=== PATIENT | female | born 1930 | race African-American/Black ===

== ENCOUNTER 2017-03-02 08:38 | Inpatient (IN) | payer MEDICARE, OTHER ==
--- NOTE | ~2017-03-02 | CT71 ---
[facility] A Service of [facility] RADIOLOGY TEXT RESULTS PATIENT: CARMINA CASON LOCATION: [facility] 563-01 : [birth year] UNIT #: [id number] AGE: [address]: Valentino Langston MD SEX: F ORDER DR: [id number] [facility] [address] [facility]. [place], [place] [address] [id number] MR#: [id number] Acc #: [id number] NAME: CARMINA CASON : 1930 SEX: F STUDY DATE/TIME: 03/02/2017 10:18 UNIT: [facility] ROOM: STUDY DESCRIPTION: CT Head Wo Contrast Attending Physician: Guru Soto M.D. Ordering Physician: Guru Soto M.D. Primary Care Physician: Sherman Tavarez M.D. MEDICAL IMAGING REPORT This report is preliminary unless electronic signature is present EXAM Noncontrast head CT. HISTORY 86-year-old female; altered mental status, unable to arouse patient this morning. History of hypertension, dementia. TECHNIQUE Axial noncontrast imaging of the brain demonstrates generalized atrophy. No mass, mass effect, or midline shift. No hemorrhage or abnormal extraaxial fluid collections. Intracranial vascular calcifications noted. The bony calvaria, skull base, mastoids, and sinuses appear normal. IMPRESSION 1. No acute intracranial abnormality identified. 2. Generalized cerebral and cerebellar atrophy consistent with the patient's advanced age and history of dementia. Dictated by... Lizbeth Melton M.D. THIS IS AN ELECTRONICALLY VERIFIED REPORT Lizbeth Melton M.D. at 03/03/2017 8:37 AM Teri TD: 03/02/2017 13:01 JOB #: [id number] MEDICAL IMAGING REPORT Page 1 of 1 COPY
--- NOTE | ~2017-03-02 | EKG ---
PATIENT: CARMINA CASON UNIT #: [id number] Ventricular Rate: 64 BPM Atrial Rate: 64 BPM P-R Interval: 180 ms QRS Duration: 76 ms Q-T Interval: 434 ms QTC Calculation(Bezet): 447 ms P [place]: 44 degrees Calculated R [place]: 126 degrees Calculated T [place]: 8 degrees Diagnosis Line: Sinus rhythm with Premature atrial complexes Diagnosis Line: Low voltage QRS Diagnosis Line: Lateral infarct , age undetermined Diagnosis Line: Abnormal ECG Diagnosis Line: No previous ECGs available Diagnosis Line: [facility] LEADS ON [facility] Diagnosis Line: Confirmed by AYSHA LEONARD MD ([id number]) on 03/03/2017 Diagnosis Line: 5:59:57 PM INTERPRETING MD: HORACIO POTTER
--- NOTE | ~2017-03-02 | CR72 ---
[facility] A Service of [facility] & [facility] RADIOLOGY TEXT RESULTS PATIENT: CARMINA CASON LOCATION: [facility] 563-01 : [birth year] UNIT #: [id number] AGE: [address]: Valentino Langston MD SEX: F ORDER DR: [id number] [facility] [address] [facility] [place] [facility]. [place], [place] [address] [id number] MR#: [id number] Acc #: [id number] NAME: CARMINA CASON : 1930 SEX: F STUDY DATE/TIME: 03/02/2017 9:27 UNIT: [facility] ROOM: STUDY DESCRIPTION: CR Chest Single View Portable Attending Physician: Guru Soto M.D. Ordering Physician: Guru Soto M.D. MEDICAL IMAGING REPORT This report is preliminary unless electronic signature is present EXAM Portable chest one view, 03/02/17 COMPARISON: None CLINICAL HISTORY Short of air today. FINDINGS Low lung volumes, and rotated exam. No definite acute abnormality. Osteopenia, left axillary surgical clips and chronic changes in the right shoulder, no definite acute abnormality. Dictated by... Bharat Owens M.D. THIS IS AN ELECTRONICALLY VERIFIED REPORT Bharat Owens M.D. at 03/03/2017 1:48 PM TEV/douglas TD: 03/02/2017 11:25 JOB #: [id number] MEDICAL IMAGING REPORT Page 1 of 1 COPY
--- NOTE | ~2017-03-02 | CO ---
Unit #: [id number] #: [id number] Patient: CARMINA MARCIAL [id number] [facility] [address] [facility]. [place], [place] [address] [id number] MR#: [id number] NAME: CARMINA MARCIAL ROOM: 563 Age: 86 Sex: F Admission Date: 03/05/2017 : 1930 Attending Physician: Valentino Langston M.D. Primary Care Physician: Sherman Tavarez M.D. Consultation Date: 03/07/2017 CONSULTATION REPORT REASON FOR CONSULTATION Followup. HISTORY OF PRESENT ILLNESS Ms. Marcial is an 86-year-old female, seen in room 563, bed 1, on 03/07/2017 at [facility]. The patient diagnosed with dementia, has confusion, but much better and decrease in agitation. The patient is making progress and will be going back to nursing facility. The patient was started on Risperdal and the patient seems to be tolerating medication fairly well. Also, continuing on Remeron, Depakote, and BuSpar. The patient denied any complaints. REVIEW OF SYSTEMS Complete review of systems is unremarkable. VITAL SIGNS Temperature 97.8, heart rate 82, respiratory rate 16, blood pressure 151/84, and oxygen saturation 98%. MENTAL STATUS EXAMINATION General appearance; the patient dressed casually, thin built, lying comfortably in bed. No agitation. The patient's attention span and concentration, poor. Speech, poor articulation. Oriented in self. Mood and affect, labile. Thought process, circumstantial. Thought content, guarded and paranoid. Recent and remote memory, poor. Language, fair to poor. Fund of knowledge, impaired. Insight and judgment, fair to poor. 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 ASSESSMENT AND PLAN Recommending at this time to continue with current combination of medication at this time and the patient can be discharged back to [facility]. At this time, the patient has shown improvement. The patient to continue with all her medications including Risperdal, Remeron, Depakote, and BuSpar. Please feel free to call if any questions, telephone #[phone]. Dictated by... Binh Clancy M.D. [facility]/julianne Unit #: [id number] #: [id number] Patient: CARMINA MARCIAL TD: 03/08/2017 13:25 JOB #: [id number] CONSULTATION REPORT Page 1 of 1 X Binh Clancy MD CONSULTATION REPORT
--- NOTE | ~2017-03-02 | HP ---
Unit #: [id number] #: [id number] Patient: CARMINA MARCIAL [id number] [facility] [address] [place], [place] [address] [id number] I MR#: [id number] NAME: CARMINA MARCIAL ROOM: [facility] Age: 86 Sex: F Admission Date: 03/02/2017 : 1930 Attending Physician: Valentino Langston M.D. Primary Care Physician: Sherman Tavarez M.D. HISTORY AND PHYSICAL ADMISSION DIAGNOSES 1. Altered mental status. 2. Urinary tract infection. HISTORY OF PRESENT ILLNESS Ms. Marcial is an 86-year-old female, patient of Dr. Tavarez at the long-term, who was transferred to the ER at [facility] for evaluation of altered mental status. Initial evaluation in the ER was significant for a UTI. Patient was started on IV antibiotics and is currently being admitted. She is alert and awake, however, severely confused and disoriented to time, place, and person. There is no family member present at the bedside. Therefore, my history is limited, and I am not able to obtain any review of systems. PAST MEDICAL HISTORY 1. Depression. 2. Anxiety. 3. Chronic leg pain. 4. Chronic kidney disease. 5. Anemia of chronic disease. 6. Dyslipidemia. 7. Seizure disorder. 8. Questionable psych history. 9. Questionable hypertension; however, on the home medications, she is not taking any blood pressure medications. HOME MEDICATIONS 1. Multivitamin. 2. Tylenol. 3. Ativan. 4. Biofreeze. 5. BuSpar. 6. Depakote. 7. Ferrous sulfate. 8. Flexeril. 9. Lipitor. 10. MiraLax. 11. Remeron. 12. Senokot. 13. Synthroid. 14. Ultram. 15. Vitamin B12. 16. Zyrtec. Unit #: [id number] #: [id number] Patient: CARMINA MARCIAL ALLERGIES No known drug allergies. SOCIAL HISTORY No history of tobacco, alcohol, or illicit drugs at least per the patient. Again, I do not know how reliable this information is since the patient is severely disoriented. FAMILY HISTORY Unknown. PHYSICAL EXAMINATION GENERAL: Ms. Marcial is an 86-year-old female in no acute distress. VITAL SIGNS: Blood pressure 125/92, heart rate 73, respirations 18, and temperature 98.7. HEENT: Head is atraumatic. Pupils equal, round, and reactive to light. Extraocular muscles intact. Oropharynx clear with multiple missing teeth. NECK: Supple. No mass, no JVD, and no bruits. CHEST: Diminished bilaterally at the bases but generally clear. CARDIOVASCULAR: S1 and S2. No murmurs. ABDOMEN: Soft, nontender, and nondistended. LOWER EXTREMITIES: Without any cyanosis, clubbing, or edema. NEUROLOGIC: Again, alert and awake. No focal neurologic deficits. Moves all four extremities. The rest of the neurologic exam is limited secondary to patient's confusion. DIAGNOSTIC STUDIES LABORATORY: Chemistry significant for GFR of 50.3 which goes with her history of chronic kidney disease, BUN and creatinine 33 and 1, albumin 3.3, and alkaline phosphatase 108. Lactic acid 0.8. Ammonia level 9. Coagulation panel unremarkable. Set of cardiac enzymes negative. Hematology shows hemoglobin and hematocrit 10.5 and 32 and white count 5.2. Urinalysis with 3+ leukocyte esterase, positive nitrite, 25-50 WBCs, and 3+ bacteria. Urine culture is currently pending. IMAGING: CT of the head without any acute intracranial findings. It shows some cerebral atrophy with likely dementia. Chest x-ray also without any acute abnormalities. ASSESSMENT AND PLAN 1. Altered mental status most likely multifactorial with underlying dementia plus toxic metabolic encephalopathy most likely secondary to underlying urinary tract infection. 2. Urinary tract infection. Continue IV Rocephin and follow up on the urine culture. 3. History of depression and anxiety. Continue home medications. Will hold the Ativan for now. 4. Chronic leg pain. Continue Tylenol. Hold Ultram while she is altered. 5. History of chronic kidney disease, stable. 6. Dyslipidemia. Continue home medications. 7. Gastrointestinal and deep venous thrombosis prophylaxis. Will go with sequential compression devices and Pepcid. 8. Seizure disorder. Continue home Depakote. 9. Hypothyroidism. Continue home replacement therapy. 1. Unit #: [id number] #: [id number] Patient: CARMINA MARCIAL Dictated by Valentino Langston M.D. OC/lizzy TD: 03/02/2017 21:28 JOB #: [id number] HISTORY AND PHYSICAL Page 1 of 1 X Valentino Langston MD HISTORY AND PHYSICAL
--- NOTE | ~2017-03-02 | CO ---
Unit #: [id number] #: [id number] Patient: CARMINA MARCIAL [id number] [facility] [address] [facility]. [place], [place] [address] [id number] I MR#: [id number] NAME: CARMINA MARCIAL ROOM: 563 Age: 86 Sex: F Admission Date: 03/02/2017 : 1930 Attending Physician: Valentino Langston M.D. Primary Care Physician: Sherman Tavarez M.D. Consultation Date: 03/04/2017 CONSULTATION REPORT REASON FOR CONSULTATION Altered mental status and confusion. HISTORY OF PRESENT ILLNESS Ms. Marcial is an 86-year-old female, seen in room 563, bed 1 on 03/04/2017 at [facility]. The patient carries a diagnosis of dementia, admitted in a confused state. The patient was agitated last night, unable to give any reliable information. The patient is still confused, requiring one-to-one monitoring. The patient's information was obtained from the nursing staff, chart as well as from the sitter. The patient's vital signs; temperature 98.2, pulse 89, respirations 18, blood pressure 146/78. PAST PSYCHIATRIC HISTORY Remarkable for history of dementia. No other history available at this time. MEDICAL HISTORY History of depression, anxiety, chronic leg pain, chronic kidney disease, anemia, dyslipidemia, seizure disorder, and hypertension. MEDICATIONS The patient is on multivitamin, Tylenol, Ativan, Biofreeze, BuSpar, Depakote, ferrous sulfate, Flexeril, Lipitor, MiraLax, Remeron, Senokot, Synthroid, Ultram, vitamin B12, and Zyrtec. ALLERGIES No known drug allergies. FAMILY HISTORY AND SOCIAL HISTORY The patient has a poor support system. Resident of snf. No known history of any substance abuse. No known history of any abuse. REVIEW OF SYSTEMS A complete review of systems is unremarkable except as mentioned above. MENTAL STATUS EXAMINATION Vital signs; please see above. General appearance; the patient is thin built, dressed casually in hospital attire, lying comfortably in bed, but before that, she was very agitated, unable to sleep last night. Attention span and concentration, poor. Speech, unable to understand. Orientation, not oriented. Mood and affect, labile. Thought process, circumstantial. Thought content; guarded, paranoid. Recent and remote memory, poor. Language, fair to poor. Fund of knowledge, impaired. Insight and Unit #: [id number] #: [id number] Patient: CARMINA MARCIAL judgment, impaired. DIAGNOSES Psychiatric: 1. Delirium, F05. 2. 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 Secondary diagnosis: Deferred. Medical diagnosis: Please refer to H and P. Stressors: Psychosocial stressor. ASSESSMENT AND PLAN 1. Supportive psychotherapy and psychoeducation provided to the patient, but the patient was unable to comprehend much at this time. Recommending at this time to continue with one-to-one sitter at this time for the patient's safety. Continue with current treatment. Advised to add Risperdal 0.25 mg t.i.d. and advised to hold if the patient is too sleepy. Continue with her other medication, Remeron, Depakote, and BuSpar. Please feel free to call if any questions, telephone #[phone]. Dictated by... Binh Clancy M.D. CHARLEE/julianne TD: 03/05/2017 12:46 JOB #: [id number] CONSULTATION REPORT Page 1 of 1 X Binh Clancy MD X CONSULTATION REPORT
--- NOTE | ~2017-03-02 | DS ---
Unit #: [id number] #: [id number] Patient: MAIN MARCIAL [id number] [address] [address] [id number] I MR#: [id number] NAME: MAIN MARCIAL ROOM: 563 Age: 86 Sex: F Admission Date: 03/02/2017 : 1930 Discharge Date: 03/07/2017 Attending Physician: Valentino Langston M.D. Primary Care Physician: Sherman Tavarez M.D. DISCHARGE SUMMARY FINAL DIAGNOSES 1. Altered mental status which is improved. 2. Urinary tract infection. 3. Urine culture positive for Kluyvera ascorbata. 4. History of depression and anxiety. 5. Delirium. 6. Major neurologic cognitive disorder due to Alzheimer disease with behavioral disturbances. 7. Chronic leg pain. 8. History of chronic kidney disease. 9. Hyperlipidemia. 10. Hypothyroidism. 11. Seizure disorder. DISCHARGE MEDICATIONS 1. Senokot 2 tablets p.o. b.i.d. 2. MiraLAX 17 g b.i.d. 3. Lipitor 10 mg at nighttime. 4. Ferrous sulfate 325 mg b.i.d. 5. Pepcid 20 mg daily. 6. Multivitamin daily. 7. Cyclobenzaprine 5 mg q.12 h. p.r.n. 8. Bactrim 1 tablet p.o. b.i.d. 9. Synthroid 175 mcg daily. 10. Cyanocobalamin 1000 mcg intramuscular q. weekly. 11. Acetaminophen 650 mg q.4 h. p.r.n. 12. Depakote 250 mg t.i.d. 13. Remeron 15 mg at bedtime. 14. Zyrtec 10 mg daily. 15. Risperdal 0.25 mg t.i.d. Hold if the patient is sedated. 16. BuSpar [address]. Binh Clancy from psychiatry service. DIAGNOSTIC DATA LABORATORY: White blood cell count 5.8, hemoglobin 12.5, hematocrit 39.0, platelets 139. BMP showed sodium 142, potassium 3.9, chloride 109, BUN 8, creatinine 0.7, Depakote level 55. Urine culture is again Kluyvera ascorbata 40,000-50,000 colonies, sensitive to ceftriaxone and Bactrim. Lactic acid on admission 0.8. Ammonia on admission 9. IMAGING: CT scan of the head without contrast showed no acute intracranial abnormalities, generalized cerebral and cerebellar atrophy Unit #: [id number] #: [id number] Patient: MAIN MARCIAL consistent with the patient's advanced age and history of dementia. Chest x-ray single view showed low lung volume and rotated exam. No definite acute abnormality. HOSPITAL COURSE Ms. Main Marcial is an 86-year-old female who was admitted by my colleague, Dr. Langston with complaint of altered mental status. The patient was transferred from the long-term. The patient is being followed by Dr. Tavarez in the long-term. The patient was started on IV antibiotic and was admitted. The patient is doing well at this time. The patient received IV Rocephin during hospitalization, which has been changed to Bactrim. She needs Bactrim only for three days or so. Because of the patient's anxiety and altered mental status and confusion, Dr. Binh Clancy was consulted. As per Dr. Binh Clancy, the patient does have delirium, major neurocognitive disorder due to Alzheimer disease with behavioral disturbances. Supportive psychotherapy and psychoeducation was provided by Dr. Binh Clancy. The patient had one-to-one sitter in the beginning of the stay, but that has been discontinued. The patient was advised to add Risperdal 0.25 mg t.i.d. and that was started. Continue with the medications of Remeron, Depakote and BuSpar. The patient is stable and is being discharged home. PHYSICAL EXAMINATION VITALS: On discharge, blood pressure 151/84, respiratory rate 16, pulse 82, temperature 97.8, oxygen saturation 98%. HEENT: Head is normocephalic. CHEST: Fair air entry. Decreased at the bases. HEART: S1 and S2 positive. Regular rhythm. ABDOMEN: Soft. EXTREMITIES: Negative edema. DISCHARGE INSTRUCTIONS 1. The patient is being discharged to the long-term in stable condition. 2. Medications as per medication reconciliation. 3. Dr. Tavarez to follow the patient at rehab. 4. Bactrim for three days. Dictated by... Rafiq Mobley/gisella AUGUSTE: 03/07/2017 10:55 TD: 03/07/2017 11:15 JOB #: [id number] DISCHARGE SUMMARY Page 1 of 1 X Bonnie Peters MD DISCHARGE SUMMARY
[2017-03-02 09:49] LABS: BASOPHIL# 0.1 X10e3 (0-0.3); BASOPHIL% 1.2 % (0-2.5); EOSINOPHIL# 0.2 X10e3 (0-0.7); EOSINOPHIL% 4.4 % (0.0-7.0); HEMOGLOBIN 10.5 gm/dL (12.0-16.0); LYMPHOCYTE% 38.3 % (17.0-45.0); MEAN CELL VOLUME 86.8 FL (83-96); MEAN CORPUSCULAR HEMOGLOBIN 28.5 PG (28-34); MEAN CORPUSCULAR HGB CONC 32.9 g/dL (30-36); MEAN PLATELET VOLUME 9.5 FL (6.5-11.5); MONOCYTE# 0.5 X10e3 (0-1.0); MONOCYTE% 10.4 % (3.0-12.0); NEUTROPHIL# 2.4 X10e3 (1.5-7.1); NEUTROPHIL% 45.7 % (40-75); PLATELET COUNT 214 X10e3 (140-420); RED BLOOD COUNT 3.69 X10e (3.90-5.30); RED CELL DISTRIBUTION WIDTH 14.7 % (11.0-15.5); WHITE BLOOD COUNT 5.2 X10e3 (4.0-10.5)
[2017-03-02 09:50] LABS: DIFF IND NO
[2017-03-02 09:57] LABS: PARTIAL THROMBOPLASTIN TIME 29.5 SECONDS (23.5-31.3); PROTHROMBIN TIME (PATIENT) 10.5 SECONDS (9.6-11.5)
[2017-03-02 10:02] LABS: ALBUMIN SERUM 3.3 g/dL (3.5-5.0); ALKALINE PHOSPHATASE 108 U/L (32-92); ALT (SGPT) 19 U/L (10-40); AST (SGOT) 23 U/L (10-42); BILIRUBIN,TOTAL 0.6 mg/dL (0.2-2.0); BLOOD UREA NITROGEN 33 mg/dL (9-23); CALCIUM SERUM 8.5 mg/dL (8.4-10.2); CARBON DIOXIDE 27 mmol/L (22-31); CHLORIDE 106 mmol/L (100-111); GLOM FILT RATE Estimated 50.3 mL/min (>60); GLUCOSE FASTING 77 mg/dL (70-110); POTASSIUM 4.2 mmol/L (3.5-5.1); SODIUM 141 mmol/L (135-145)
[2017-03-02 10:03] LABS: BILIRUBIN, DIRECT <0.1 mg/dL (0.0-0.2); BILIRUBIN,INDIRECT 0.5 mg/dL (0.0-0.9)
[2017-03-02 10:21] LABS: POC - CKMB <1.0 ng/mL (0.0-7.9); POC - TROPONIN <0.05 ng/mL (<=0.05)
[2017-03-02 11:10] LABS: URINE SOURCE CLEAN CATCH
[2017-03-02 11:18] LABS: URINE APPEARANCE CLOUDY; URINE BILIRUBIN NEG (NEG); URINE BLOOD NEG (NEG); URINE COLOR YELLOW; URINE GLUCOSE NEG (NEG); URINE KETONE TRACE (NEG); URINE LEUKOCYTE ESTERASE 3+ (NEG); URINE NITRATE POS (NEG); URINE PROTEIN NEG (NEG); URINE SPECIFIC GRAVITY 1.018 (1.003-1.035)
[2017-03-02 11:21] LABS: CULTURE INDICATED? YES; URINE SQUAMOUS EPITHELIAL CELL OCC /[HPF]
[2017-03-02 11:40] LABS: URINE BACTERIA AUWI 3+ (NEGATIVE); UWBCS1 AUWI 25-50 (0-5)
[2017-03-02 11:41] LABS: URINE AMORPHOUS SEDIMENT AMORP PHOSPHATES; URINE YEAST PRESENT
[2017-03-02] MEDS ORDERED: MULTIVITAMINS1 EAC3 PO (12:13)
[2017-03-02] MEDS ORDERED: ACETAMINOPHEN325 MG PO (12:14)
[2017-03-02] MEDS ORDERED: BIOFREEZE118 ML TOP (12:15)
[2017-03-02] MEDS ORDERED: ATIVAN0.5 M1 PO (12:15)
[2017-03-02] MEDS ORDERED: BUSPIRONE HCL10 MG PO (12:16)
[2017-03-02] MEDS ORDERED: FERRO-TIME325 MG PO (12:16)
[2017-03-02] MEDS ORDERED: DEPAKOTE125 MG PO (12:16)
[2017-03-02] MEDS ORDERED: CYCLOBENZAPRINE5 MG PO (12:17)
[2017-03-02] MEDS ORDERED: LIPITOR PO (12:17)
[2017-03-02] MEDS ORDERED: REMERON15 MG PO (12:18)
[2017-03-02] MEDS ORDERED: MIRALAX17 GM PO (12:18)
[2017-03-02] MEDS ORDERED: SENNA-TIME S T1 EACH PO (12:19)
[2017-03-02] MEDS ORDERED: ULTRAM PO (12:19)
[2017-03-02] MEDS ORDERED: SYNTHROID175 MCG PO (12:19)
[2017-03-02] MEDS ORDERED: CYANOCOBAL1000 MCG/M IM (12:21)
[2017-03-02] MEDS ORDERED: ZYRTEC10 M1 PO (12:22)
[2017-03-03 05:34] LABS: BASOPHIL% 0.8 % (0-2.5); EOSINOPHIL# 0.1 X10e3 (0-0.7); EOSINOPHIL% 1.1 % (0.0-7.0); HEMATOCRIT 34.8 % (35.0-45.0); HEMOGLOBIN 11.3 gm/dL (12.0-16.0); LYMPHOCYTE# 1.3 X10e3 (1.0-3.5); LYMPHOCYTE% 22.5 % (17.0-45.0); MEAN CELL VOLUME 86.5 FL (83-96); MEAN CORPUSCULAR HEMOGLOBIN 28.1 PG (28-34); MEAN CORPUSCULAR HGB CONC 32.4 g/dL (30-36); MEAN PLATELET VOLUME 9.5 FL (6.5-11.5); MONOCYTE# 0.6 X10e3 (0-1.0); MONOCYTE% 9.9 % (3.0-12.0); NEUTROPHIL# 3.9 X10e3 (1.5-7.1); NEUTROPHIL% 65.7 % (40-75); PLATELET COUNT 210 X10e3 (140-420); RED BLOOD COUNT 4.02 X10e (3.90-5.30); RED CELL DISTRIBUTION WIDTH 14.4 % (11.0-15.5)
[2017-03-03 05:37] LABS: DIFF IND NO
[2017-03-03 06:23] LABS: BUN/CREATININE RATIO 31.66; CALCIUM SERUM 8.7 mg/dL (8.4-10.2); CREATININE SERUM 0.6 mg/dL (0.6-1.4); GLOM FILT RATE Estimated 94.3 mL/min (>60); POTASSIUM 3.7 mmol/L (3.5-5.1)
[2017-03-05 07:31] LABS: HEMATOCRIT 35.8 % (35.0-45.0); HEMOGLOBIN 11.6 gm/dL (12.0-16.0); MEAN CELL VOLUME 86.4 FL (83-96); MEAN CORPUSCULAR HEMOGLOBIN 28.1 PG (28-34); MEAN CORPUSCULAR HGB CONC 32.5 g/dL (30-36); MEAN PLATELET VOLUME 9.7 FL (6.5-11.5); RED BLOOD COUNT 4.14 X10e (3.90-5.30); RED CELL DISTRIBUTION WIDTH 14.6 % (11.0-15.5); WHITE BLOOD COUNT 4.8 X10e3 (4.0-10.5)
[2017-03-05 08:10] LABS: CALCIUM SERUM 8.5 mg/dL (8.4-10.2); CREATININE SERUM 0.6 mg/dL (0.6-1.4); GLOM FILT RATE Estimated 94.3 mL/min (>60); POTASSIUM 3.8 mmol/L (3.5-5.1)
[2017-03-06 09:47] LABS: BUN/CREATININE RATIO 11.42; CALCIUM SERUM 8.7 mg/dL (8.4-10.2); CREATININE SERUM 0.7 mg/dL (0.6-1.4); GLOM FILT RATE Estimated 89.7 mL/min (>60); POTASSIUM 3.9 mmol/L (3.5-5.1)
[2017-03-06 10:36] LABS: HEMATOCRIT 36.3 % (35.0-45.0); HEMOGLOBIN 11.5 gm/dL (12.0-16.0); MEAN CELL VOLUME 87.8 FL (83-96); MEAN CORPUSCULAR HEMOGLOBIN 27.8 PG (28-34); MEAN CORPUSCULAR HGB CONC 31.7 g/dL (30-36); MEAN PLATELET VOLUME 10.2 FL (6.5-11.5); RED BLOOD COUNT 4.14 X10e (3.90-5.30); RED CELL DISTRIBUTION WIDTH 14.7 % (11.0-15.5); WHITE BLOOD COUNT 4.9 X10e3 (4.0-10.5)
[2017-03-07 07:02] LABS: HEMOGLOBIN 12.5 gm/dL (12.0-16.0); MEAN CELL VOLUME 87.3 FL (83-96); MEAN CORPUSCULAR HGB CONC 32.1 g/dL (30-36); MEAN PLATELET VOLUME 10.6 FL (6.5-11.5); RED BLOOD COUNT 4.47 X10e (3.90-5.30); RED CELL DISTRIBUTION WIDTH 14.5 % (11.0-15.5); WHITE BLOOD COUNT 5.8 X10e3 (4.0-10.5)
== END 2017-03-07 15:49 | DRG 689 ==
LOC: CED 08:38 → C5C 13:00 → CEDOF 13:00 → CED 13:18 → C5C 13:18 → CEDOF 13:18 → C5B 19:50 → CEDOF 19:50 → C5C 23:48 → C5B 23:48 → C5C 03-05 09:30 → CEDOF 03-05 09:30 → C5C 03-05 09:30 → C5B 03-05 09:30 → C5C 03-07 15:49
PROVIDERS: Emergency Medicine; Hospitalist; Internal Medicine
DX: N39.0 Urinary tract infection, site not specified (principal); G92 Toxic encephalopathy; G30.9 Alzheimer's disease, unspecified; F02.81 Dementia in other diseases classified elsewhere, unspecified severity, with behavioral disturbance; B96.89 Other specified bacterial agents as the cause of diseases classified elsewhere; I12.9 Hypertensive chronic kidney disease with stage 1 through stage 4 chronic kidney disease, or unspecified chronic kidney disease; N18.9 Chronic kidney disease, unspecified; E03.9 Hypothyroidism, unspecified; G40.909 Epilepsy, unspecified, not intractable, without status epilepticus; F41.9 Anxiety disorder, unspecified; F32.9 Major depressive disorder, single episode, unspecified; M79.606 Pain in leg, unspecified; E78.5 Hyperlipidemia, unspecified; G89.29 Other chronic pain
CPT/HCPCS: 51701; 70450; 71010; 80048; 80076; 80164; 81003; 82140; 82553; 82947; 83605; 84484; 85025; 85027; 85610; 85730; 87086; 87088; 87186; 93005; 96361; 96374; 96375; 99291; J0696